=== PATIENT | male | born 1985 | race Caucasian/White ===

== ENCOUNTER 2022-04-03 08:49 | Outpatient (CLI) | payer BC | END 2022-04-03 08:50 | disposition home or self-care (01) | LOC: CSHULT 08:49 | PROVIDERS: ATTEND Internal Medicine Gastroenterology | DX: K57.30 Diverticulosis of large intestine without perforation or abscess without bleeding (principal); R19.7 Diarrhea, unspecified; R10.13 Epigastric pain; K82.4 Cholesterolosis of gallbladder | CPT/HCPCS: 76700 ==